=== PATIENT | female | born 1960 | race Caucasian/White ===

== ENCOUNTER 2016-05-04 17:17 | Emergency (ER) | payer OTHER ==
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
[2016-05-04 19:11] VITALS: BP 133/75
== END 2016-05-04 19:20 | disposition home or self-care (01) ==
LOC: UCCORT 17:17
DX: M76.31 Iliotibial band syndrome, right leg (principal); R03.0 Elevated blood-pressure reading, without diagnosis of hypertension; H54.42 Blindness, left eye, normal vision right eye; Z88.0 Allergy status to penicillin; Z96.651 Presence of right artificial knee joint; Z90.49 Acquired absence of other specified parts of digestive tract; Z77.22 Contact with and (suspected) exposure to environmental tobacco smoke (acute) (chronic)
CPT/HCPCS: 99212; G0463

== ENCOUNTER 2016-07-27 10:40 | Day surgery (SDC) | payer OTHER ==
[~2016-07-27 10:40] MED LIST: Buffered Lidocaine 0.9% SYRIN* 5 ML/SYR SYRINGE INTRADERM ONE; Buffered Lidocaine 0.9% SYRIN* 5 ML/SYR SYRINGE ONE; Clindamycin 900 MG IVPREMIX(* 900 MG/50 ML SDV IV ONE; Famotidine IV* 10 MG/ML 2 ML (20 mg) IV ONE; Famotidine IV* 10 MG/ML 2 ML (20 mg) ONE
[2016-07-27] MEDS ORDERED: Propofol* 10 MG/ML 20 ML BTL IV PUSH ONE (11:08)
[2016-07-27] MEDS ORDERED: Ketorolac INJ* 30 MG/ML 1 ML VIAL ONE (11:08)
[2016-07-27] MEDS ORDERED: Lidocaine 2% PF * 5 ML VIAL ONE (11:08)
[2016-07-27] MEDS ORDERED: fentaNYL* 50 MCG/ML 2 ML VIAL (100 MCG VIAL) ONE (11:08)
[2016-07-27] MEDS ORDERED: Ondansetron INJ* 2 MG/ML VIAL ONE (11:08)
[2016-07-27] MEDS ORDERED: Dexamethasone IV* 4 MG/ML 1 ML (4 MG) ONE (11:08)
[2016-07-27] MEDS ORDERED: Midazolam* 1 MG/ML 5 ML VIAL (5 MG) ONE (11:08)
[2016-07-27] MEDS ORDERED: DiMENhydriNATE IV* 50 MG/ML VIAL ONE (11:08)
[2016-07-27] MEDS ORDERED: oxyCODONE TAB* 5 MG TAB PO PRN (11:23)
[2016-07-27] MEDS ORDERED: DiMENhydriNATE IV* 50 MG/ML VIAL IV PUSH PRN (11:23)
[2016-07-27] MEDS ORDERED: Acetaminophen TAB* 325 MG PO PRN (11:23)
[2016-07-27] MEDS ORDERED: HYDROmorphone* 1 MG/ML 1 ML SYR IV PRN (11:23)
[2016-07-27] MEDS ORDERED: Lidocaine 2% EPI 1:200000 MPF* 20 ML VIAL ONE (12:58)
[2016-07-27 14:37] VITALS: BP 121/52
--- NOTE | 2016-07-28 07:19 | OP ---
DATE OF OPERATION: 07/27/16 [facility] DATE OF : 58 SURGEON: Wilber Bar MD GEOCHEMISTRY TEACHER: LIZZY Medina ANESTHESIOLOGIST: Heidi Elizabeth MD ANESTHESIA: General. PRE-OP DIAGNOSIS: Painful lipoma, right thigh. POST-OP DIAGNOSIS: Painful lipoma, right thigh . OPERATIVE PROCEDURE: Excision, lipoma right thigh. ESTIMATED BLOOD LOSS: Less than 20 cc. COMPLICATIONS: None. SUMMARY: Ms. Freeman is a 55-year-old female who reports long history of troubles with a painful lump over the outer side of her right thigh. She was very interested in getting this removed, as it has been giving her more and more pain as time is gone by. She had undergone an MRI, which had only found benign looking fatty tissue, so I discussed with her that this appeared to be a lipoma and excision of that lipoma should work well so that she would no longer have that pain. We would also sent it to Pathology to make sure there is not something else going on. Risks of surgery such as infection, scar formation, and continued pain were some of the risks discussed. She had wished to proceed. DESCRIPTION OF PROCEDURE: The patient was brought to the OR and an LMA was placed. Right thigh was prepped and then draped. Skin over the incisional area was infiltrated using 2% lidocaine with epinephrine. I had marked her in the holding area with essentially a bull's eye area where the edges of the lipoma could be felt and incision was made from the most proximal portion of that marked to the most distal portion. Incision was carried down to the skin and a little bit into the subcutaneous tissues, but I believe I got into the lipoma really very quickly. Blunt dissection with metzenbaum scissors was carried out and the tissue came out in pieces. These were all collected and sent for pathology. Continuing to palpate while dissecting pieces of the fat were all taken out until I could no longer feel the edges of the bump. The most superior and most inferior portions were the last one to take out and after that the area was much more uniform. Wound was irrigated using a bulb syringe and more lidocaine with epinephrine was injected in and about the incision. 2- 0 sutures were used to tack down the edges and floor, so that she would not have a space collecting to form a seroma. It could be seen where this puckered down and in a little bit, but appeared to have a nice closure. A few subcutaneous 2-0 sutures were passed as well and skin was closed using rina. Sterile dressing was applied. The patient had the LMA removed in the OR and was stable on transfer to the recovery room. DISPOSITION/DISCHARGE SUMMARY: Ms. Freeman is a 55-year-old female who just underwent an excision of a lipoma from her right thigh. She tolerated the procedure well and there were no complications. She is currently rolling into the recovery room. Once she awakes a bit more from her general anesthesia, can tolerate p.o., has her pain well controlled, can void, she will be discharged home. Prescription for Percocet will be e-scribed in. She has instructions to keep her dressing clean, dry, and intact for the next 3 days, but after that may take her dressing down, cover rina with 2 to 3 large Band-Aids, may shower, wash, and get it wet, but should not soak it. I would like to see her in the office in 10 to 14 days to remove her rina and make sure she is doing well. If there are any problems in the meanwhile or if anything odd should occur, there are instructions to give the office a call. [id number]/[facility] #: [id number] [place]
== END 2016-07-27 15:05 | disposition home or self-care (01) ==
LOC: OR 10:40
PROVIDERS: ATTEND Orthopaedic Surgery
DX: D17.23 Benign lipomatous neoplasm of skin and subcutaneous tissue of right leg (principal); J45.20 Mild intermittent asthma, uncomplicated; I10 Essential (primary) hypertension
CPT/HCPCS: 88304; J1100; J1240; J1885; J2250; J2405; J2704; J3010

== ENCOUNTER 2016-12-11 18:16 | Emergency (ER) | payer OTHER ==
[2016-12-11 19:16] VITALS: BP 133/70
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
--- NOTE | 2016-12-11 20:33 | RAD ---
INDICATION: Left shoulder pain COMPARISON: None TECHNIQUE: Routine frontal, Y and axial views were obtained. FINDINGS: There is mild AC joint osteoarthritis. There is moderate spurring about the inferior glenoid and medial aspect of the humeral head. There is glenohumeral joint space narrowing. There is calcific tendinitis. IMPRESSION: MODERATE OSTEOARTHRITIS WITH CALCIFIC TENDINITIS
== END 2016-12-11 21:15 | disposition home or self-care (01) ==
LOC: UCCORT 18:16
DX: M75.32 Calcific tendinitis of left shoulder (principal); M19.012 Primary osteoarthritis, left shoulder; Z88.6 Allergy status to analgesic agent; Z88.5 Allergy status to narcotic agent; Z88.0 Allergy status to penicillin; Z91.048 Other nonmedicinal substance allergy status
CPT/HCPCS: 99213; G0463

== ENCOUNTER → 2017-04-28 09:23 | Day surgery (SDC) | payer OTHER ==
[~2017-04-28 09:23] MED LIST changes: -Buffered Lidocaine 0.9% SYRIN* 5 ML/SYR SYRINGE ONE; +Dexamethasone IV* 4 MG/ML 1 ML (4 MG) IV SLOW PU ONE; +Dexamethasone IV* 4 MG/ML 1 ML (4 MG) ONE; +EPHEDrine (Pressors)* 50 MG/ML VIAL ONE; +Ketorolac INJ* 30 MG/ML 1 ML VIAL IV PRN; +Lidocaine 2% PF * 5 ML VIAL ONE; +Midazolam* 1 MG/ML 5 ML VIAL (5 MG) ONE; +Mivacurium Chloride* 20 MG/10 ML VIAL IV ONE; +Naloxone* 0.4 MG/ML 1 ML VIAL IV PRN; +Ondansetron INJ* 2 MG/ML VIAL ONE; +PROCHLORPERAZINE INJ 5 MG/ML 2 ML VIAL IV PRN; +Propofol* 10 MG/ML 20 ML BTL IV PUSH ONE; +ROPIVACAINE 5 MG/ML 30 ML BTL (0.5%) ONE; +fentaNYL* 50 MCG/ML 2 ML VIAL (100 MCG VIAL) IV PRN; +fentaNYL* 50 MCG/ML 2 ML VIAL (100 MCG VIAL) ONE; +oxyCODONE/Acetamin 5/325 MG* TAB PO PRN
[2017-04-28 15:19] VITALS: BP 128/69
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
== END | disposition home or self-care (01) ==
LOC: OR 09:23
PROVIDERS: ATTEND Orthopaedic Surgery
DX: S46.101A Unspecified injury of muscle, fascia and tendon of long head of biceps, right arm, initial encounter (principal); S46.011D Strain of muscle(s) and tendon(s) of the rotator cuff of right shoulder, subsequent encounter; J45.909 Unspecified asthma, uncomplicated; E78.00 Pure hypercholesterolemia, unspecified; M10.9 Gout, unspecified; G47.33 Obstructive sleep apnea (adult) (pediatric); I10 Essential (primary) hypertension; Z88.0 Allergy status to penicillin; Z88.5 Allergy status to narcotic agent; Z88.8 Allergy status to other drugs, medicaments and biological substances
CPT/HCPCS: C1713; J1100; J2250; J2405; J2704; J2795; J3010

== ENCOUNTER 2017-12-25 15:03 | Emergency (ER) | payer SELFPAY ==
[2017-12-25 15:26] VITALS: BP 128/79
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
== END 2017-12-25 16:15 | disposition home or self-care (01) ==
LOC: UCCORT 15:03
DX: T14.8XXD Other injury of unspecified body region, subsequent encounter (principal); V89.2XXD Person injured in unspecified motor-vehicle accident, traffic, subsequent encounter; Z88.1 Allergy status to other antibiotic agents; Z88.5 Allergy status to narcotic agent; Z88.8 Allergy status to other drugs, medicaments and biological substances; I10 Essential (primary) hypertension
CPT/HCPCS: 99212; G0463